=== PATIENT | male | born 1940 | race Caucasian/White ===

== ENCOUNTER → 2016-11-01 | Outpatient (REF) | payer OTHER ==
[~2016-11-01] MED LIST: /ADVA50050 IN; /FENT50PA TD; CIPR25SS OR; COLA100C2 OR; CRES5TAB OR; CREST; FLAG500T OR; HYDR25TA6 OR; PERC5TAB8 OR; [UNRECOGNIZED DRUG - OTHER]; hydro
== END | disposition home or self-care (01) ==
LOC: M SFHCCAPE 07:39
PROVIDERS: ATTEND Physician Assistant
DX: D50.9 Iron deficiency anemia, unspecified (principal); J44.9 Chronic obstructive pulmonary disease, unspecified; N40.0 Benign prostatic hyperplasia without lower urinary tract symptoms; Z53.8 Procedure and treatment not carried out for other reasons

== ENCOUNTER → 2016-11-03 | Outpatient (REF) | payer OTHER | LOC: M SFHCCAPE 16:32 | PROVIDERS: ATTEND Physician Assistant | DX: I10 Essential (primary) hypertension (principal); R97.20 Elevated prostate specific antigen [PSA]; Z79.899 Other long term (current) drug therapy | CPT/HCPCS: 81001; 87086; G0463 ==

== ENCOUNTER → 2016-11-15 | Outpatient (CLI) | payer OTHER | LOC: M SMT 10:19 | PROVIDERS: ATTEND Nurse Practitioner Women's Health | DX: R97.20 Elevated prostate specific antigen [PSA] (principal); Z79.899 Other long term (current) drug therapy | CPT/HCPCS: 36415; 81001; 87086; G0463 ==

== ENCOUNTER → 2016-12-28 | Day surgery (SDC) | payer OTHER ==
[~2016-12-28] VITALS: Ht 172.7 cm; Wt 101.2 kg
[~2016-12-28] MED LIST changes: +ALBU17IN INH; +ASPI1TAB PO; +BENA40TA2 PO; +BREO1INH INH; +BUPIVACAINE HCL 0.25% 30 ML VIAL As Ordered ONE; +CRES5TAB PO; +FISH100049 PO; +FLOM5CAP PO; +GENTAMICIN 100 MG in APPROPRIATE DILUENT 1 EA IV ONE; +HYDR25TAB PO; +IRON50TA PO; +LIDOCAINE 1% SDV INJ 30 ML VIAL As Ordered ONE; +LIDOCAINE 2% INJ 100 MG/5 ML SDV (FOR ANES.) As Ordered ONE; +LR 1,000 ML IV SCH; +METO50TA2 PO; +MIDAZOLAM INJ 2 MG/2 ML VIAL (J2250) As Ordered ONE; +MULTCAP12 PO; +PROPOFOL 200 MG/20 ML VIAL As Ordered ONE; +VITA100T5 PO; +VITA2000 PO; +fentaNYL 100 MCG/2 ML INJECTION (J3010) As Ordered ONE
[2016-12-28 08:45] VITALS: BP 113/60
--- NOTE | 2016-12-28 09:34 | REP ---
TRANSRECTAL PROSTATE ULTRASOUND WITH ULTRASOUND GUIDANCE FOR PROSTATE BIOPSY: Real-time sonographic evaluation of the prostate performed utilizing transrectal probe. The size of the gland is 4.3 x 3.1 x 4.7 cm for a total volume of 31.9 mL. Scattered tiny calcifications and cystic areas are seen. No definite focal peripheral zone nodule is seen. Ultrasound guidance was provided for Dr. Vazquez who performed ultrasound guided biopsy of the prostate. Signed by Jose D Ann MD 12/28/2016 02:25 P
--- NOTE | 2016-12-28 14:13 | RO ---
DATE OF PROCEDURE: 12/28/2016 PREPROCEDURE DIAGNOSIS: PSA elevation. POSTPROCEDURE DIAGNOSIS: PSA elevation. SURGERY PERFORMED: Transrectal ultrasound prostate biopsies. SURGEON: Quincy Vazquez MD SHOE PATTERNMAKER: Debra Saleh, PGY-3 ANESTHESIA: General. COMPLICATIONS: None. ESTIMATED BLOOD LOSS: N/A. HISTORY OF PRESENT ILLNESS: 76-year-old male patient has PSA elevation and would like to have transrectal ultrasound guided prostate biopsies under general anesthesia. For this reason, he has consented for a TRUS biopsy under anesthesia. DESCRIPTION OF PROCEDURE: With the patient in the decubitus lateral position with the left side down and the right side up ,with IV sedation and anesthesia, we introduced a transrectal ultrasound probe, localized the prostate, which was 32 grams, and localized the seminal vesical in the prostate angle. At that moment in time, we placed local anesthesia with a mixture of Marcaine 2% and 0.25% total of 5 mL at this angle. We then proceeded to perform a 12 core prostate biopsy, starting at the base, right lateral base, right lateral mid, right apex, right lateral apex, and then on the left side at the left base, left base lateral, left mid lateral, left apex, left apex lateral. There were no complications of surgery. We took the transrectal ultrasound probe out and the needle also. THe patient will pass through recovery. He will take antibiotic, which was prescribed in the clinic as Cipro twice a day 500 mg one tablet by mouth every 12 hours the day before biopsy, the day of biopsy, and the day after. He will followup at [facility] [place] to review the pathology results. MACHO
== END | disposition home or self-care (01) ==
LOC: M SDC 06:04
PROVIDERS: ATTEND Urology
DX: D07.5 Carcinoma in situ of prostate (principal); I10 Essential (primary) hypertension; E78.5 Hyperlipidemia, unspecified; D64.9 Anemia, unspecified; J44.9 Chronic obstructive pulmonary disease, unspecified; Z98.61 Coronary angioplasty status; G47.30 Sleep apnea, unspecified; Z88.2 Allergy status to sulfonamides; Z91.013 Allergy to seafood; Z79.82 Long term (current) use of aspirin; Z79.899 Other long term (current) drug therapy; Z87.891 Personal history of nicotine dependence
CPT/HCPCS: 55700; 76872; G0416; J1580; J2250; J3010

== ENCOUNTER → 2017-07-31 | Outpatient (CLI) | payer OTHER ==
[~2017-07-31] MED LIST changes: -BENA40TA2 PO; +BENA40TA7 PO; -BUPIVACAINE HCL 0.25% 30 ML VIAL As Ordered ONE; -GENTAMICIN 100 MG in APPROPRIATE DILUENT 1 EA IV ONE; -LIDOCAINE 1% SDV INJ 30 ML VIAL As Ordered ONE; -LIDOCAINE 2% INJ 100 MG/5 ML SDV (FOR ANES.) As Ordered ONE; -LR 1,000 ML IV SCH; -METO50TA2 PO; +METO50TA7 PO; -MIDAZOLAM INJ 2 MG/2 ML VIAL (J2250) As Ordered ONE; -PROPOFOL 200 MG/20 ML VIAL As Ordered ONE; -fentaNYL 100 MCG/2 ML INJECTION (J3010) As Ordered ONE
--- NOTE | 2017-07-31 10:18 | REP ---
BILATERAL SHOULDER SERIES: Three views of the right shoulder are performed and demonstrate multiple old right rib fractures and an old right scapular fracture. Mild narrowing and spurring is seen at the acromioclavicular joint. Three views of the left shoulder are performed and demonstrate mild spurring at the acromioclavicular joint and also of the bony glenoid. No acute findings are seen. IMPRESSION: Mild bilateral degenerative changes. Old right rib fractures and right scapular fracture.
== END ==
LOC: M CLY 09:29
PROVIDERS: ATTEND Physician Assistant
DX: M19.011 Primary osteoarthritis, right shoulder (principal)
CPT/HCPCS: 73030; G0463

== ENCOUNTER → 2018-08-31 | Outpatient (CLI) | payer OTHER | LOC: M CLY 10:25 | DX: M85.88 Other specified disorders of bone density and structure, other site (principal); M51.34 Other intervertebral disc degeneration, thoracic region; M25.78 Osteophyte, vertebrae | CPT/HCPCS: 71111 ==

== ENCOUNTER → 2018-11-15 | Outpatient (CLI) | payer MEDICARE ==
[~2018-11-15] MED LIST changes: +FLOM0.4C39 PO; -FLOM5CAP PO; +PROHANCE 279.3MG/ML 15ML VIAL (A9576) As Ordered ONE; -VITA100T5 PO; +VITA100T59 PO
== END ==
LOC: M RAD 13:11
PROVIDERS: ATTEND Nurse Practitioner Women's Health
DX: R97.20 Elevated prostate specific antigen [PSA] (principal)

== ENCOUNTER → 2018-11-20 | Outpatient (CLI) | payer MEDICARE ==
[~2018-11-20] MED LIST changes: +ASPI81TA85 PO; -PROHANCE 279.3MG/ML 15ML VIAL (A9576) As Ordered ONE
--- NOTE | 2018-11-21 02:56 | REP ---
Clinical: Preoperative assessment. Technique: PA and lateral. Comparison: 08/09/2016. Findings: Mediastinum and cardiac silhouette are normal. Lung medellin demonstrate chronic-appearing interstitial changes without focal consolidation, effusion, or pneumothorax. Skeletal structures suggest old right rib fractures. Impression: No acute cardiopulmonary process. Old right rib fractures.
== END ==
LOC: M CLY 14:00
PROVIDERS: ATTEND Nurse Practitioner Women's Health
DX: Z01.818 Encounter for other preprocedural examination (principal); R97.20 Elevated prostate specific antigen [PSA]

== ENCOUNTER 2018-12-07 08:58 | Day surgery (SDC) | payer MEDICARE ==
[~2018-12-07] VITALS: Ht 170.2 cm; Wt 99.3 kg
[2018-12-07] MEDS ORDERED: LR 1,000 ML IV ONE (09:30)
[2018-12-07] MEDS ORDERED: MIDAZOLAM INJ 2 MG/2 ML VIAL (J2250) As Ordered ONE (11:05)
[2018-12-07] MEDS ORDERED: fentaNYL 100 MCG/2 ML INJECTION (J3010) As Ordered ONE (11:05)
[2018-12-07] MEDS ORDERED: LIDOCAINE 2% INJ 100 MG/5 ML SYRINGE As Ordered ONE (11:05)
[2018-12-07] MEDS ORDERED: PROPOFOL 200 MG/20 ML VIAL As Ordered ONE (11:05)
[2018-12-07] MEDS ORDERED: LIDOCAINE 1% SDV INJ 30 ML VIAL As Ordered ONE (11:53)
[2018-12-07] MEDS ORDERED: BUPIVACAINE HCL 0.25% 30 ML VIAL As Ordered ONE (11:54)
--- NOTE | 2018-12-07 12:40 | ROOPDOC ---
[facility] Report Of Operation Report of Operation DATE OF PROCEDURE: 12/07/18 PREPROCEDURE DIAGNOSES: Elevated Prostate Specific Antigen (PSA). POSTPROCEDURE DIAGNOSES: Elevated Prostate Specific Antigen (PSA). PROCEDURE: Transrectal Ultrasound-guided Prostate Biopsy. SURGEON: Glenn Burton MD MILITARY SCIENCE TEACHER: None ANESTHESIA: MAC. OPERATIVE INDICATIONS: This is a 78 year old male with an elevated PSA of 7.1, here today for a prostate biopsy. DESCRIPTION OF PROCEDURE: The patient was placed in the left lateral position. A transrectal ultrasound probe was placed into the rectum. A prostatic block was created with injection of 50% mixture of 1/4% Marcaine and 1% lidocaine below the left and right seminal vesicle each of the 5 mL. Subsequently the ultrasonologist measured the dimensions of the prostate and the volume was 30mL. Then 12 core biopsies of the prostate were obtained using a disposable biopsy gun, 6 each from the right and 6 from the left - 2 from the base, 2 from the mid zone and 2 from the apex. There were no complications and the patient tolerated the procedure well. ESTIMATED BLOOD LOSS: 5 mL. COMPLICATIONS: None. SPECIMENS: Prostate biopsies. Plan: The patient will follow up in clinic to discuss pathology results. GLENN BURTON MD Dec 07, 2018 12:40
[2018-12-07 13:00] VITALS: BP 132/74
--- NOTE | 2018-12-07 14:07 | REP ---
TRANSRECTAL PROSTATE ULTRASOUND WITH ULTRASOUND GUIDANCE FOR PROSTATE BIOPSY: Transrectal prostate ultrasound performed. Prostate measures 4.3 x 2.7 x 4.9 cm for a total volume of 29.5 mL. There is central benign prostatic hypertrophy with scattered tiny echogenic calcifications and cysts. Ultrasound guidance was provided for Dr. Oropeza who performed ultrasound-guided biopsy of the prostate. Electronically Signed by Jose D Ann MD 12/07/2018 07:54 P
== END 2018-12-07 13:05 | disposition home or self-care (01) ==
LOC: M SDC 08:58
PROVIDERS: ATTEND Urology
DX: R97.20 Elevated prostate specific antigen [PSA] (principal); I25.10 Atherosclerotic heart disease of native coronary artery without angina pectoris; I10 Essential (primary) hypertension; Z98.61 Coronary angioplasty status; G47.30 Sleep apnea, unspecified; Z87.891 Personal history of nicotine dependence; Z88.2 Allergy status to sulfonamides; Z79.82 Long term (current) use of aspirin; E78.5 Hyperlipidemia, unspecified; J44.9 Chronic obstructive pulmonary disease, unspecified; Z79.899 Other long term (current) drug therapy
CPT/HCPCS: 36415; 55700; 76872; 76998; 86850; 86900; 86901; G0416; J0690; J2250; J3010

== ENCOUNTER 2019-03-13 07:30 | Outpatient (RCR) | payer MEDICARE ==
[~2019-03-13 07:30] MED LIST changes: -/ADVA50050 IN; -/FENT50PA TD; +ADVA1AER2 IN; -ASPI1TAB PO; +ASPI81TA26 PO; +FENT1DIS15 TD
== END 2019-03-17 ==
LOC: M PT 07:30
PROVIDERS: ATTEND Orthopaedic Surgery
DX: M54.6 Pain in thoracic spine (principal)

== ENCOUNTER 2019-03-27 07:18 | Outpatient (RCR) | payer MEDICARE | END 2019-04-17 | LOC: M PT 07:18 | PROVIDERS: ATTEND Orthopaedic Surgery | DX: Z47.89 Encounter for other orthopedic aftercare (principal); M54.6 Pain in thoracic spine ==

== ENCOUNTER 2019-05-15 08:07 | Outpatient (RCR) | payer MEDICARE | END 2019-05-18 | disposition home or self-care (01) | LOC: M PT 08:07 | PROVIDERS: ATTEND Orthopaedic Surgery | DX: Z51.89 Encounter for other specified aftercare (principal); M25.561 Pain in right knee ==

== ENCOUNTER 2019-05-22 07:56 | Outpatient (RCR) | payer MEDICARE | END 2019-06-17 | disposition home or self-care (01) | LOC: M PT 07:56 | PROVIDERS: ATTEND Orthopaedic Surgery | DX: Z51.89 Encounter for other specified aftercare (principal); M25.561 Pain in right knee ==

== ENCOUNTER → 2020-06-08 | Outpatient (REF) | payer MEDICARE ==
[~2020-06-08] MED LIST changes: -ASPI81TA85 PO; +ASPI81TA86 PO; +BENA40TA5 PO; -BENA40TA7 PO
[2020-06-08 11:52] LABS: BASO # 0.1 10^3/uL (0.0-0.2); BASO % 0.6 % (0.0-1.0); EOS # 0.6 10^3/uL (0.0-0.5); HEMATOCRIT 43.1 % (42.0-52.0); HEMOGLOBIN 13.1 g/dl (13.5-17.5); LYMPH # 2.2 10^3/uL (1.5-5.0); LYMPH % 20.7 % (24.0-44.0); MEAN CORPUSCULAR HEMOGLOBIN 30.5 pg (27.0-33.0); MEAN CORPUSCULAR HGB CONC 30.4 g/dl (32.0-36.5); MEAN CORPUSCULAR VOLUME 100.5 fl (80.0-96.0); MONO # 0.8 10^3/uL (0.0-0.8); NEUTROPHILS % 65.1 % (36.0-66.0); PLATELET COUNT, AUTOMATED 318 10^3/uL (150-450); RED BLOOD COUNT 4.29 10^6/uL (4.30-6.10); WHITE BLOOD COUNT 10.8 10^3/uL (4.0-10.0)
[2020-06-08 13:18] LABS: ALBUMIN 3.5 GM/DL (3.2-5.2); ALT/SGPT 23 U/L (12-78); BILIRUBIN,TOTAL 0.4 MG/DL (0.2-1.0); BLOOD UREA NITROGEN 22 MG/DL (7-18); CALCIUM LEVEL 9.4 MG/DL (8.8-10.2); CARBON DIOXIDE LEVEL 28 MEQ/L (21-32); CHLORIDE LEVEL 106 MEQ/L (98-107); CHOLESTEROL LEVEL 154 MG/DL (<200); CHOLESTEROL RISK RATIO 2.483 (<5); CREATININE FOR GFR 1.21 MG/DL (0.70-1.30); GLOMERULAR FILTRATION RATE > 60.0 (>42); GLUCOSE, FASTING 99 MG/DL (70-100); HDL CHOLESTEROL 62 MG/DL (>40); LDL CHOLESTEROL 63 MG/DL (<100); NON-HDL-C 92 MG/DL; PROSTATIC SPECIFIC AG MONITOR 2.98 NG/ML (< 4.00); SODIUM LEVEL 137 MEQ/L (136-145); TOTAL PROTEIN 7.4 GM/DL (6.4-8.2); TRIGLYCERIDES LEVEL 143 MG/DL (<150)
== END ==
LOC: M SFHCCLAY 11:05
PROVIDERS: ATTEND Family Medicine
DX: I25.10 Atherosclerotic heart disease of native coronary artery without angina pectoris (principal); R97.20 Elevated prostate specific antigen [PSA]; D50.9 Iron deficiency anemia, unspecified; E78.5 Hyperlipidemia, unspecified

== ENCOUNTER → 2020-12-22 | Outpatient (CLI) | payer MEDICARE ==
[~2020-12-22] MED LIST changes: +HYDR-3490 PO; -HYDR25TAB PO
--- NOTE | 2020-12-22 08:58 | REP ---
INDICATION: J45.909, ASTHMA. COMPARISON: PA and lateral chest dated 11/20/2018. TECHNIQUE: Upright PA and lateral chest. FINDINGS: The lung medellin are clear but again appear hyperinflated, unchanged. Cardiac size is normal. The lloyd, mediastinum, and skeletal structures are unremarkable. IMPRESSION: Lung medellin appear chronically hyperinflated, unchanged. Otherwise, negative PA and lateral chest <Electronically signed by Jose D Hair > 12/22/20 [id number]
== END ==
LOC: M CLY 08:33
PROVIDERS: ATTEND Family Medicine
DX: J45.909 Unspecified asthma, uncomplicated (principal); I10 Essential (primary) hypertension; D53.9 Nutritional anemia, unspecified
CPT/HCPCS: 71046; 80048; 82607; 82746; 84165; 85025; G0463

== ENCOUNTER → 2020-12-22 | Outpatient (REF) | payer MEDICARE ==
[2020-12-22 11:10] LABS: BASO # 0.1 10^3/uL (0.0-0.2); BASO % 0.5 % (0.0-1.0); EOS # 0.5 10^3/uL (0.0-0.5); EOS % 4.1 % (0.0-3.0); HEMATOCRIT 40.5 % (42.0-52.0); HEMOGLOBIN 12.2 g/dl (13.5-17.5); LYMPH # 2.1 10^3/uL (1.5-5.0); LYMPH % 18.5 % (24.0-44.0); MEAN CORPUSCULAR HEMOGLOBIN 30.2 pg (27.0-33.0); MEAN CORPUSCULAR HGB CONC 30.1 g/dl (32.0-36.5); MEAN CORPUSCULAR VOLUME 100.2 fl (80.0-96.0); MONO # 0.8 10^3/uL (0.0-0.8); MONO % 7.4 % (2.0-8.0); NEUTROPHILS # 7.7 10^3/uL (1.5-8.5); NEUTROPHILS % 69.1 % (36.0-66.0); PLATELET COUNT, AUTOMATED 309 10^3/uL (150-450); RED BLOOD COUNT 4.04 10^6/uL (4.30-6.10); WHITE BLOOD COUNT 11.2 10^3/uL (4.0-10.0)
[2020-12-22 11:45] LABS: BLOOD UREA NITROGEN 21 MG/DL (7-18); CALCIUM LEVEL 9.8 MG/DL (8.8-10.2); CARBON DIOXIDE LEVEL 34 MEQ/L (21-32); CHLORIDE LEVEL 105 MEQ/L (98-107); CREATININE FOR GFR 1.22 MG/DL (0.70-1.30); GLOMERULAR FILTRATION RATE > 60.0 (>42); GLUCOSE, FASTING 106 MG/DL (70-100); POTASSIUM SERUM 4.8 MEQ/L (3.5-5.1); SODIUM LEVEL 139 MEQ/L (136-145); TOTAL PROTEIN 7.1 GM/DL (6.4-8.2)
[2020-12-22 11:55] LABS: FOLATE 20.4 NG/ML (>5.4); VITAMIN B12 LEVEL 581 PG/ML (247-911)
[2020-12-24 13:23] LABS: ALBUMIN 3.86 GM/DL (3.29-5.55); ALBUMIN % 54.4 % (55.8-66.1); ALPHA-1-GLOBULIN % 4.4 % (2.9-4.9); ALPHA-1-GLOBULINS 0.31 GM/DL (0.17-0.41); ALPHA-2-GLOBULINS 0.91 GM/DL (0.42-0.99); ALPHA-2-GLOBULINS % 12.8 % (7.1-11.8); BETA-1-GLOBULINS 0.45 GM/DL (0.28-0.60); BETA-1-GLOBULINS % 6.4 % (4.7-7.2); BETA-2-GLOBULINS 0.43 GM/DL (0.19-0.55); BETA-2-GLOBULINS % 6.1 % (3.2-6.5); GAMMA GLOBULIN % 15.9 % (11.1-18.8); GAMMA GLOBULINS 1.13 GM/DL (0.65-1.58)
== END ==
LOC: M SFHCCLAY 08:25
PROVIDERS: ATTEND Family Medicine
DX: J45.909 Unspecified asthma, uncomplicated (principal); I10 Essential (primary) hypertension; D53.9 Nutritional anemia, unspecified

== ENCOUNTER → 2021-06-24 | Outpatient (REF) | payer MEDICARE ==
[2021-06-24 12:00] LABS: HEMATOCRIT 41.1 % (42.0-52.0); HEMOGLOBIN 12.7 g/dl (13.5-17.5); MEAN CORPUSCULAR HEMOGLOBIN 30.2 pg (27.0-33.0); MEAN CORPUSCULAR HGB CONC 30.9 g/dl (32.0-36.5); MEAN CORPUSCULAR VOLUME 97.9 fl (80.0-96.0); PLATELET COUNT, AUTOMATED 314 10^3/uL (150-450); WHITE BLOOD COUNT 11.2 10^3/uL (4.0-10.0)
[2021-06-24 12:54] LABS: HEMOGLOBIN A1c 5.8 %
[2021-06-24 13:47] LABS: ALBUMIN 3.2 GM/DL (3.2-5.2); ALT/SGPT 21 U/L (12-78); BILIRUBIN,TOTAL 0.3 MG/DL (0.2-1.0); BLOOD UREA NITROGEN 21 MG/DL (7-18); CALCIUM LEVEL 9.1 MG/DL (8.8-10.2); CARBON DIOXIDE LEVEL 30 MEQ/L (21-32); CHLORIDE LEVEL 106 MEQ/L (98-107); CHOLESTEROL LEVEL 126 MG/DL (<200); CREATININE FOR GFR 1.16 MG/DL (0.70-1.30); GLOMERULAR FILTRATION RATE > 60.0 (>42); GLUCOSE, FASTING 102 MG/DL (70-100); HDL CHOLESTEROL 60 MG/DL (>40); IRON (FE) 45 UG/DL (65-175); LDL CHOLESTEROL 48 MG/DL (<100); NON-HDL-C 66 MG/DL; POTASSIUM SERUM 4.7 MEQ/L (3.5-5.1); SODIUM LEVEL 141 MEQ/L (136-145); TOTAL PROTEIN 6.9 GM/DL (6.4-8.2); TRIGLYCERIDES LEVEL 90 MG/DL (<150)
[2021-06-24 15:35] LABS: CREATININE, URINE 93.8 MG/DL; MAU/CREAT RATIO 141.7 MCG/MG (0.0-30.0)
== END ==
LOC: M SFHCCLAY 07:46
PROVIDERS: ATTEND Family Medicine
DX: J44.9 Chronic obstructive pulmonary disease, unspecified (principal); I10 Essential (primary) hypertension; E11.8 Type 2 diabetes mellitus with unspecified complications; D50.9 Iron deficiency anemia, unspecified
CPT/HCPCS: 80053; 80061; 82043; 83036; 83540; 85027; G0463; G8483

== ENCOUNTER → 2021-11-08 | Outpatient (REF) | payer MEDICARE ==
[~2021-11-08] MED LIST changes: -BENA40TA5 PO; +BENA40TA84 PO
== END ==
LOC: M SFHCCLAY 10:46
PROVIDERS: ATTEND Family Medicine
DX: H53.9 Unspecified visual disturbance (principal)

== ENCOUNTER → 2021-11-15 | Outpatient (CLI) | payer MEDICARE | LOC: M RAD 12:44 | PROVIDERS: ATTEND Family Medicine | DX: H53.9 Unspecified visual disturbance (principal); I65.23 Occlusion and stenosis of bilateral carotid arteries ==

== ENCOUNTER → 2022-06-24 | Outpatient (REF) | payer MEDICARE ==
[2022-06-24 17:58] LABS: HEMATOCRIT 39.7 % (42.0-52.0); HEMOGLOBIN 12.4 g/dl (13.5-17.5); MEAN CORPUSCULAR HEMOGLOBIN 30.6 pg (27.0-33.0); MEAN CORPUSCULAR HGB CONC 31.2 g/dl (32.0-36.5); PLATELET COUNT, AUTOMATED 294 10^3/uL (150-450); RED BLOOD COUNT 4.05 10^6/uL (4.30-6.10)
[2022-06-24 18:33] LABS: ALBUMIN 3.2 GM/DL (3.2-5.2); ALT/SGPT 20 U/L (12-78); BILIRUBIN,TOTAL 0.2 MG/DL (0.2-1.0); BLOOD UREA NITROGEN 19 MG/DL (7-18); CARBON DIOXIDE LEVEL 31 MEQ/L (21-32); CHLORIDE LEVEL 104 MEQ/L (98-107); CHOLESTEROL LEVEL 137 MG/DL (<200); CHOLESTEROL RISK RATIO 2.634 (<5); CREATININE FOR GFR 1.18 MG/DL (0.70-1.30); GLOMERULAR FILTRATION RATE > 60.0 (>42); GLUCOSE, FASTING 93 MG/DL (70-100); HDL CHOLESTEROL 52 MG/DL (>40); LDL CHOLESTEROL 44 MG/DL (<100); NON-HDL-C 85 MG/DL; POTASSIUM SERUM 4.9 MEQ/L (3.5-5.1); SODIUM LEVEL 138 MEQ/L (136-145); TOTAL PROTEIN 6.9 GM/DL (6.4-8.2); TRIGLYCERIDES LEVEL 206 MG/DL (<150)
== END ==
LOC: M SFHCCLAY 11:40
PROVIDERS: ATTEND Family Medicine
DX: I10 Essential (primary) hypertension (principal); E11.8 Type 2 diabetes mellitus with unspecified complications; J44.9 Chronic obstructive pulmonary disease, unspecified; Z95.5 Presence of coronary angioplasty implant and graft; D50.9 Iron deficiency anemia, unspecified; Z12.5 Encounter for screening for malignant neoplasm of prostate
CPT/HCPCS: 80053; 80061; 85027; G0103

== ENCOUNTER → 2022-07-13 | Outpatient (CLI) | payer MEDICARE | LOC: M CARPUL 13:22 | PROVIDERS: ATTEND Family Medicine | DX: J44.9 Chronic obstructive pulmonary disease, unspecified (principal) ==

== ENCOUNTER → 2022-12-01 | Outpatient (CLI) | payer MEDICARE | LOC: M RAD 12:59 | PROVIDERS: ATTEND Family Medicine | DX: I10 Essential (primary) hypertension (principal); G47.33 Obstructive sleep apnea (adult) (pediatric); J44.9 Chronic obstructive pulmonary disease, unspecified; M47.9 Spondylosis, unspecified; J98.11 Atelectasis; J98.4 Other disorders of lung ==

== ENCOUNTER → 2023-08-25 | Outpatient (REF) | payer MEDICARE | LOC: M SFHCCLAY 07:57 | PROVIDERS: ATTEND Physician Assistant | DX: Z12.5 Encounter for screening for malignant neoplasm of prostate (principal) ==